=== PATIENT | female | born 1950 | race Asian ===

== ENCOUNTER 2023-11-13 09:35 | Outpatient (AMB) | payer OTHER, SELFPAY ==
--- NOTE | 2023-11-13 09:37 | A.OFFVIS_ITS ---
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 Patient reports that her knee pain has been going on for about 3 years. She has had cortisone injections in the past which gave her temporary relief. The patient also reports progressively worsening low back pain which radiates down her left leg. She has been seen by an cable engineer outside plant which gave her minimal relief. The patient also reports intermittent weakness in her left leg. Her back pain has gotten worse over the last year in spite of continued non operative treatments. She has tried Tylenol and anti-inflammatory medicines which gave her minimal relief. Accompanied by: Daughter Allergies advil gel Allergy (Severe, Uncoded 11/13/23 10:00) Hives Medication List - Last Reconciled 11/13/23 by Yusef Arellano MD alendronate 35 mg PO QWEEK calcium carbonate mg PO DAILY capsaicin 0.025% patches topical carvedilol 3.125 mg PO BID cholecalciferol (vitamin D3) (Vitamin D3) 25 mcg PO DAILY fluticasone propionate 50 mcg/actuation 1 spray intranasal DAILY lisinopril 10 mg PO DAILY pantoprazole 40 mg PO DAILY simvastatin 20 mg PO BEDTIME [facility] Social History Patient Tobacco Use Status: Former Tobacco user Quit Date: pt quit summer Years Smoked: 30 Physical Exam Vital Signs: BMI result Body Mass Index 23.6 Const Other: Well-nourished well-developed very friendly female awake alert and oriented x3 in no acute distress Back/Spine/Pelvis Other: Low back examination shows left-sided paraspinal muscle tenderness, pain with range of motion, positive straight leg raise test on left at 70 degrees, 4/5 strength with testing of her left hip flexors and knee extensors when compared to 5/5 strength on her right side Extrem Other: Bilateral knee examination shows minimal effusions, mild crepitus with range of motion, mild discomfort with range of motion, no instability Results Reviewed Results Reviewed: X-rays of the patient's bilateral knee show mild diffuse joint space narrowing, no acute bony abnormalities Assessment & Plan Assessment & Plan (1) Low back pain radiating to left leg: Code(s): M54.50 - Low back pain, unspecified; M79.605 - Pain in left leg (2) Right knee pain: Code(s): M25.561 - Pain in right knee (3) Left knee pain: Code(s): M25.562 - Pain in left knee Plan Ms. Ramos presents with progressively worsening low back pain which radiates down her left leg as well as associated left leg weakness possibly due to lumbar stenosis or a disc herniation. Thus, I will send the patient for an MRI of her lumbar spine for further evaluation. I will see her back once the MRI is completed to discuss the findings and treatment options. The patient also has intermittent discomfort in both of her knees due to early degenerative joint disease. At this point her knee discomfort is tolerable to her. We will hold off on an cortisone injection. Feel free to call me at any time should questions regarding her orthopedic management arise. Thank you very much for asking me to see this very friendly patient. I spent 22 minutes in reviewing the patient's records and imaging studies, seeing the patient and documenting in the medical record. Orders: Orders XR knee LT 3V Today M25.562 - Pain in left knee XR knee RT 3V Today M25.561 - Pain in right knee MR lumbar spine wo con Today M54.50 - Low back pain, unspecified, M79.605 - Pain in left leg Coding Level of Care Code Est Pt Level 2 (05895) Diagnoses Low back pain radiating to left leg M54.50; M79.605 Right knee pain M25.561 Left knee pain M25.562
[2023-11-13 09:55] VITALS: BMI 23.6
== END 2023-11-13 10:21 | disposition home or self-care (01) ==
PROVIDERS: PCP Physician Assistant; Visit Provider Orthopaedic Surgery
DX: M17.0 Bilateral primary osteoarthritis of knee (principal); M54.50 Low back pain, unspecified; M79.605 Pain in left leg
CPT/HCPCS: 99213

== ENCOUNTER 2023-11-13 10:35 | Outpatient (REF) | payer OTHER, SELFPAY ==
--- NOTE | ~2023-11-13 | XR_ITS ---
EXAMINATION: XR KNEE, RIGHT CLINICAL INFORMATION: Pain. COMPARISON: None available. TECHNIQUE: AP, lateral and sunrise views of the right knee are submitted. FINDINGS: Bony alignment and mineralization are normal. The lateral, medial and patellofemoral joint space compartments are well-maintained. There is mild peripheral osteophyte formation of the medial and patellofemoral compartments. No fracture, dislocation or significant joint effusion is seen. There is no foreign body. XR/XR knee RT 3V IMPRESSION: 1. There is mild osteoarthritic change of the medial and patellofemoral joint space compartments of the right knee. 2. There is no right knee fracture, dislocation or joint effusion. EXAMINATION: XR KNEE, LEFT CLINICAL INFORMATION: Pain. COMPARISON: None available. TECHNIQUE: AP, lateral and sunrise views of the left knee are submitted. FINDINGS: Bony alignment and mineralization are normal. The lateral, medial and patellofemoral joint space compartments are well-maintained. There is mild peripheral osteophyte formation of the medial and patellofemoral compartments. There is no fracture, dislocation or joint effusion. No foreign body is seen. IMPRESSION: 1. There is mild osteoarthritic change of the medial and patellofemoral joint space compartments of the left knee. 2. No left knee fracture, dislocation or significant joint effusion is seen.
--- NOTE | ~2023-11-13 | XR_ITS ---
EXAMINATION: XR KNEE, RIGHT CLINICAL INFORMATION: Pain. COMPARISON: None available. TECHNIQUE: AP, lateral and sunrise views of the right knee are submitted. FINDINGS: Bony alignment and mineralization are normal. The lateral, medial and patellofemoral joint space compartments are well-maintained. There is mild peripheral osteophyte formation of the medial and patellofemoral compartments. No fracture, dislocation or significant joint effusion is seen. There is no foreign body. XR/XR knee LT 3V IMPRESSION: 1. There is mild osteoarthritic change of the medial and patellofemoral joint space compartments of the right knee. 2. There is no right knee fracture, dislocation or joint effusion. EXAMINATION: XR KNEE, LEFT CLINICAL INFORMATION: Pain. COMPARISON: None available. TECHNIQUE: AP, lateral and sunrise views of the left knee are submitted. FINDINGS: Bony alignment and mineralization are normal. The lateral, medial and patellofemoral joint space compartments are well-maintained. There is mild peripheral osteophyte formation of the medial and patellofemoral compartments. There is no fracture, dislocation or joint effusion. No foreign body is seen. IMPRESSION: 1. There is mild osteoarthritic change of the medial and patellofemoral joint space compartments of the left knee. 2. No left knee fracture, dislocation or significant joint effusion is seen.
== END 2023-11-13 10:36 | disposition home or self-care (01) ==
LOC: HO.HOSX 10:35
PROVIDERS: Visit Provider Orthopaedic Surgery
DX: M25.562 Pain in left knee (principal); M25.561 Pain in right knee; M54.50 Low back pain, unspecified; M79.605 Pain in left leg; Z79.899 Other long term (current) drug therapy
CPT/HCPCS: 73562; 99212

== ENCOUNTER 2023-12-05 10:11 | Outpatient (AMB) | payer OTHER, SELFPAY ==
--- NOTE | 2023-12-05 10:18 | MHC.OFFVIS ---
Intake Intake Visit Reasons: ov- Lumbar spine MRI review Intake Note: Tono Almendarez is a 73 year old female who presents for and MRI review of her lumbar spine. The patient describes her low back pain as sharp in nature. The patient states that the pain does radiate down her left leg. She also states that she has ?numbness? in her left leg. She has done physical therapy exercises which aggravated her pain. She has had cortisone injections given into both of her knees. She has not had a cortisone injection given into her low back. Allergies guaifenesin Allergy (Verified 12/05/23 10:22) Rash advil gel Allergy (Severe, Uncoded 11/13/23 10:00) Hives naproxen sodium Allergy (Uncoded 12/05/23 10:22) Unknown Medication List - Last Reconciled 12/05/23 by Yusef Arellano MD alendronate 35 mg PO QWEEK calcium carbonate mg PO DAILY capsaicin 0.025% patches topical carvedilol 3.125 mg PO BID cholecalciferol (vitamin D3) (Vitamin D3) 25 mcg PO DAILY fluticasone propionate 50 mcg/actuation 1 spray intranasal DAILY lisinopril 10 mg PO DAILY pantoprazole 40 mg PO DAILY simvastatin 20 mg PO BEDTIME PFSH Social History Patient Tobacco Use Status: Former Tobacco user Quit Date: pt quit summer Years Smoked: 30 Physical Exam Const Other: Well-nourished well-developed very friendly female awake alert and oriented x3 in no acute distress Back/Spine/Pelvis Other: Low back examination shows left-sided paraspinal muscle tenderness, pain with motion, positive straight leg raise test on the left at 70 degrees Results Reviewed Results Reviewed: MRI of the patient's lumbar spine shows moderate foraminal narrowing at level L5-S1, no acute bony abnormalities Assessment & Plan Assessment & Plan (1) Low back pain radiating to left leg: Code(s): M54.50 - Low back pain, unspecified; M79.605 - Pain in left leg Plan Ms. Ramos presents with low back pain which radiates down her left leg as well as associated left leg numbness due to foraminal stenosis. Thus, I will refer the patient to the neurosurgery group. [facility] for further evaluation and recommendations regarding her treatment options. The patient will follow up with me on an as-needed basis. Feel free to call me at any time should questions regarding her orthopedic management arise. I spent 22 minutes in reviewing the patient's records and imaging studies, seeing the patient and documenting in the medical record. Orders: Referrals Neurosurgery Referral M54.50 - Low back pain, unspecified, M79.605 - Pain in left leg Coding Level of Care Code Est Pt Level 2 (03266) Diagnoses Low back pain radiating to left leg M54.50; M79.605
== END 2023-12-05 10:43 | disposition home or self-care (01) ==
PROVIDERS: PCP Physician Assistant; Visit Provider Orthopaedic Surgery
DX: M54.50 Low back pain, unspecified (principal); M79.605 Pain in left leg
CPT/HCPCS: 99213

== ENCOUNTER → 2023-12-05 10:11 | Outpatient (BNVA) | payer OTHER, SELFPAY | PROVIDERS: PCP Physician Assistant; Visit Provider Orthopaedic Surgery | DX: M54.50 Low back pain, unspecified (principal); M79.605 Pain in left leg; M48.00 Spinal stenosis, site unspecified | CPT/HCPCS: 99212 ==

== ENCOUNTER 2023-12-26 09:19 | Outpatient (AMB) | payer OTHER, SELFPAY ==
--- NOTE | 2023-12-26 09:45 | MHC.OFFVIS ---
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 Arellano, Thank you for referring To to our office today. She is a pleasant 73-year-old female who comes in today with a chief complaint of low back pain with radiation down her left lower leg. When describing the distribution of the radiation she runs her hand from her left posterior buttocks down the posterior aspect of her thigh over the gastrocnemius and down to the bottom of her foot. She reports that this radicular pain is also accompanied by numbness in her left heel and at the bottom of her left foot. She reports no inciting incident, but states that her pain has been ongoing for the past 2 years. She reports that in the last 6-7 months her pain is significantly intensified in his beginning to affect her activities of daily living. She further states that she has attempted physical therapy, acupuncture, and at-home stretching/exercising with only minimal relief of symptoms. She is also exhausted [id number] remedies to try and treat this issue. PMH: Osteopenia, hypertension, seasonal allergies, GERD, hyperlipidemia. No surgical history. Social hx: The patient does not smoke, reports no substance use. Medications: Simvastatin, pantoprazole, lisinopril, fluticasone, vitamin D3, carvedilol, capsaicin, calcium carbonate, alendronate. Allergies: Guaifenesin, Advil, naproxen. Physical exam: The patient has 5/5 strength in her upper and lower extremities. She reports some numbness to palpation of the bottom of her L foot starting at the heel. The rest of her sensation is intact. Her reflexes are 2+ intact. She is able to ambulate well and rises from a seated position without difficulty. (-) Montalvo's, (-) clonus, (-) Babinski's, (-) straight leg raise bilaterally. Imaging review: MRI of the lumbar spine completed at [facility] shows mild posterior disc bulging at L3-4 and L4-5. There is a moderate-severe posterior disc herniation at L5-S1 causing severe left-sided foraminal stenosis and moderate right-sided foraminal stenosis. There is also moderate central canal stenosis noted at this level. Impression: Toes a pleasant 73-year-old female who comes in today with a chief complaint of 2 years of low back pain with radiation into her left lower extremity. She reports the symptoms have been ongoing and worsening in the last 6-7 months. She reports an associated numbness at the bottom of her left foot beginning in her heel. Her symptoms are in a classic left-sided S1 nerve root distribution. She has a large disc herniation impinging this area. We discussed the possibility of a microdiskectomy as an option to resolve her radicular pain. She reports she would like to try more conservative measures at this time. I suggested she see our colleagues in pain management for evaluation of steroid injections at L5-S1. She is agreeable to this. I will complete a referral for pain management, and encouraged to return to our office in the future if she would like to seek a surgical solution for her problem. Thank you for allowing us to care for your patient. The total time spent with this visit with this patient was 45 minutes reviewing history, physical exam, MRI imaging review, and implementation of treatment plan or further diagnostic testing Travis Ledezma MD,PhD [facility] Coding Level of Care Code New Pt Level 4 (25423) Diagnoses Low back pain radiating to left leg M54.50; M79.605
== END 2023-12-26 10:13 | disposition home or self-care (01) ==
PROVIDERS: PCP Physician Assistant; Referring Provider Orthopaedic Surgery; Visit Provider Physician Assistant
DX: M54.50 Low back pain, unspecified (principal); M79.605 Pain in left leg
CPT/HCPCS: 99204

== ENCOUNTER → 2023-12-26 09:19 | Outpatient (BNVA) | payer OTHER, SELFPAY | PROVIDERS: PCP Physician Assistant; Visit Provider Physician Assistant | DX: M54.50 Low back pain, unspecified (principal); M79.605 Pain in left leg | CPT/HCPCS: 99202 ==

== ENCOUNTER 2024-01-02 08:27 | Outpatient (AMB) | payer OTHER, SELFPAY ==
[2024-01-02 08:31] VITALS: BP 130/82; PULSE 77; RESP 12; O2SAT 97; BMI 23.6
--- NOTE | 2024-01-02 08:31 | MHC.OFFVIS ---
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 Passenger Vessel Chef Name: Shefali, prefers dtr Allergies guaifenesin Allergy (Verified 01/02/24 08:33) Rash advil gel Allergy (Severe, Uncoded 01/02/24 08:33) Hives naproxen sodium Allergy (Uncoded 01/02/24 08:33) Unknown Medication List - Last Reconciled 01/02/24 by Precious Guevara LPN alendronate 35 mg PO QWEEK calcium carbonate mg PO DAILY capsaicin 0.025% patches topical carvedilol 3.125 mg PO BID cholecalciferol (vitamin D3) (Vitamin D3) 25 mcg PO DAILY fluticasone propionate 50 mcg/actuation 1 spray intranasal DAILY lisinopril 10 mg PO DAILY pantoprazole 40 mg PO DAILY simvastatin 20 mg PO BEDTIME HPI Low back pain, pain in left leg HPI Details 73-year-old female who presents today to the office for an evaluation of low back pain and left leg pain. The patient reports low back pain that radiates down to the left lower leg. She described her pain as radiating from her left posterior buttocks down to the posterior aspect of her thigh and down to her left foot. She reports numbness in her left heel and at the bottom of her left foot. The pain has been ongoing for about two years. She states that her pain depends on the day. It is affecting her daily activities. She noticed gait imbalance issues when standing for a prolonged period.? She has had cortisone injections given to both of her knees. She has not had a cortisone injection given into her low back. She has tried physical therapy, acupuncture, and at-home stretching/exercising with only minimal relief of symptoms. She also exhausted [id number] remedies.? [facility] Social History Patient Tobacco Use Status: Former Tobacco user Quit Date: pt quit summer Years Smoked: 30 Review of Systems Const All systems reviewed & are unremarkable except as noted in HPI and below Physical Exam Vital Signs: Last Vital Signs Pulse 77 01/02/24 08:31 Resp 12 01/02/24 08:31 BP 130/82 01/02/24 08:31 Pulse Ox 97 01/02/24 08:31 Oxygen Delivery Method Room Air 01/02/24 08:31 BMI result Body Mass Index 23.6 General: Appears afebrile. Alert and oriented. Mood and affect appropriate. Follows and participates in conversation appropriately. Respiratory effort is unlabored. Able to transition from sit to stand unassisted. Ambulates with bilaterally normal heel strike and toe off. Straight leg raise reproduces some tightness of the back of her left leg. Results Reviewed Results Reviewed: 12/01/23: MRI scan LUMBAR SPINE. 11/13/2023: XR KNEE, RIGHT FINDINGS: Bony alignment and mineralization are normal. The lateral, medial and patellofemoral joint space compartments are well-maintained. There is mild peripheral osteophyte formation of the medial and patellofemoral compartments. No fracture, dislocation or significant joint effusion is seen. There is no foreign body. IMPRESSION: 1. There is mild osteoarthritic change of the medial and patellofemoral joint space compartments of the right knee. 2. There is no right knee fracture, dislocation or joint effusion. 11/13/23: XR KNEE, LEFT FINDINGS: Bony alignment and mineralization are normal. The lateral, medial and patellofemoral joint space compartments are well-maintained. There is mild peripheral osteophyte formation of the medial and patellofemoral compartments. There is no fracture, dislocation or joint effusion. No foreign body is seen. IMPRESSION: 1. There is mild osteoarthritic change of the medial and patellofemoral joint space compartments of the left knee. 2. No left knee fracture, dislocation or significant joint effusion is seen. Assessment & Plan Assessment & Plan (1) Low back pain radiating to left leg: Code(s): M54.50 - Low back pain, unspecified; M79.605 - Pain in left leg Plan Will schedule her for a left diagnostic L5 TFESI. Discussed the risks and benefits of the procedure with the patient in detail. All questions were answered. The patient is on board with the plan. Justification for interventional therapy: ? Patient with average pain > 6/10 ? Patient has exhausted conservative therapy ? Patient unable to tolerate physical therapy due to pain. Scribed for Dr. Gomez by Wild Blandon, medical director occupational health, on 01/02/2024. I, Dr. Gomez, have personally reviewed and agree with the information entered by the scribe. Coding Level of Care Code New Pt Level 4 (99430) Diagnoses Low back pain radiating to left leg M54.50; M79.605
== END 2024-01-02 08:57 | disposition home or self-care (01) ==
PROVIDERS: PCP Physician Assistant; Referring Provider Physician Assistant; Visit Provider Internal Medicine
DX: M54.50 Low back pain, unspecified (principal); M79.605 Pain in left leg
CPT/HCPCS: 99204

== ENCOUNTER → 2024-01-02 08:27 | Outpatient (BNVA) | payer OTHER, SELFPAY | PROVIDERS: PCP Physician Assistant; Referring Provider Physician Assistant; Visit Provider Internal Medicine | DX: M54.50 Low back pain, unspecified (principal); M79.605 Pain in left leg | CPT/HCPCS: 99202 ==

== ENCOUNTER 2024-03-20 06:55 | Outpatient (REF) | payer OTHER, SELFPAY ==
--- NOTE | ~2024-03-20 | FL_ITS ---
EXAMINATION: XR FLUOROSCOPY WITH IMAGES CLINICAL INFORMATION: Low back pain. COMPARISON: None available. TECHNIQUE: Fluoroscopy Supervised By: Dr. Ehsan Gomez. Fluoroscopy Time: 0.1 minute. Cumulative Dose: 2.48 mGy. DAP: 0.0111 Gycm2. Images: 4. FINDINGS: Intraoperative fluoroscopy and spot films were performed during a procedure in the OR. Marion are seen overlying the lower lumbar spine with contrast injected around their tips. Difficult to state the level in coning the images. Please see Dr. Ehsan Gomez's report for complete details. FL/FL guidance in treatment room IMPRESSION: Intraoperative fluoroscopy and spot films were obtained. Please see Dr. Ehsan Gomez's report for complete details.
== END 2024-03-20 06:56 | disposition home or self-care (01) ==
LOC: CF 06:55
PROVIDERS: PCP Physician Assistant; Visit Provider Internal Medicine
DX: M54.16 Radiculopathy, lumbar region (principal); M79.605 Pain in left leg; M54.50 Low back pain, unspecified
CPT/HCPCS: 64483; J1100; Q9967

== ENCOUNTER 2024-03-20 08:51 | Outpatient (AMB) | payer OTHER, SELFPAY ==
--- NOTE | 2024-03-20 08:53 | A.OFFVIS_ITS ---
Vital Signs 03/20/24 09:23 03/20/24 09:26 Height 5 ft 1 in Weight 125 lb BMI 23.6 BP 130/68 130/80 Blood Pressure Location Lt brachial Lt brachial Position Sitting Sitting Respiration 16 Pulse 58 Pulse Source Pulse Oximeter Pulse Oximetry (%) 97 Oxygen Delivery Method Room Air Comment Pre-Op Intake Visit Reasons: Left L5 TFESI Allergies guaifenesin Allergy (Verified 01/02/24 08:33) Rash advil gel Allergy (Severe, Uncoded 01/02/24 08:33) Hives naproxen sodium Allergy (Uncoded 01/02/24 08:33) Unknown HPI HPI Left L5 TFESI: Details: Patient presents for scheduled procedure. Denies any recent cough, cold, infection, fever or other significant changes in medical history since last office visit. [facility] Social History Patient Tobacco Use Status: Former Tobacco user Quit Date: pt quit summer Years Smoked: 30 Physical Exam Vital Signs: Last Vital Signs Pulse 58 03/20/24 09:23 Resp 16 03/20/24 09:23 BP 130/80 03/20/24 09:26 Pulse Ox 97 03/20/24 09:23 Oxygen Delivery Method Room Air 03/20/24 09:23 BMI result Body Mass Index 23.6 Office Procedures Details: Transforaminal epidural steroid injection, Left L5 After obtaining written consent, pre-procedure blood pressure and heart rate were stable and recorded in the nursing record. The patient was placed in the prone position on the fluoroscopy table. The lumbosacral area was prepped with chloraprep, allowed to dry and draped in sterile fashion. Using fluoroscopy, the skin overlying our target was anesthetized with 0.5% lidocaine. A 22 gauge 3.5 inch spinal needle was advanced to the safe triangle in the upper pole of the left L5 foramen. No paresthesias were elicited with needle placement and aspiration was negative for blood and CSF. Correct needle position was confirmed with approximately 1 ml contrast dye (Omnipaque 180 mg/ml) injected under real-time fluoroscopy. No evidence of vascular or intrathecal uptake was seen and there was both epidural and peripheral spread of the contrast agent. 10 mg dexamethasone plus 1 ml containing 0.5% lidocaine was slowly injected. The needle was flushed and removed. The skin was cleansed and a sterile bandages were applied. The patient tolerated the procedure well and no complications were encountered. Following the procedure the patient's vital signs were stable. The patient was discharged home in good condition with post-procedural instructions. Time Out: Immediately prior to the procedure, the following was verbally confirmed that there is a signed consent form and that the correct patient, planned procedure, site and side are consistent with documentation and that necessary equipment and/or blood products are available prior to the start of the case. Complications: none EBL: <5 cc 77790 - Lumbar/Sacral Procedure code (CPT) selection complete Assessment & Plan Assessment & Plan (1) Low back pain radiating to left leg: Code(s): M54.50 - Low back pain, unspecified; M79.605 - Pain in left leg Category: Medical Plan Patient is status post left L5 TFESI. Patient tolerated procedure well and was discharged home in stable condition with discharge instructions. All questions were answered. We will follow-up via telephone or in clinic to assess response to therapy. A follow-up appointment was made during today's visit. Orders: Orders FL guidance in treatment room Today M54.50 - Low back pain, unspecified, M79.605 - Pain in left leg Coding Level of Care Code Procedure Only Diagnoses Low back pain radiating to left leg M54.50; M79.605 CPT Codes Transforaminal Epidural Steroid Inj - TESI 3: 87632 - Lumbar/Sacral ([id number])
[2024-03-20 09:23] VITALS: BP 130/68; PULSE 58; RESP 16; O2SAT 97; BMI 23.6
[2024-03-20 09:26] VITALS: BP 130/80
== END 2024-03-20 09:27 | disposition home or self-care (01) ==
LOC: HO.PMCPRC 08:51
PROVIDERS: PCP Physician Assistant; Visit Provider Internal Medicine
DX: M54.16 Radiculopathy, lumbar region (principal)
CPT/HCPCS: 64483

== ENCOUNTER 2024-04-23 10:27 | Outpatient (AMB) | payer OTHER, SELFPAY ==
--- NOTE | 2024-04-23 10:35 | A.OFFVIS_ITS ---
Vital Signs 04/23/24 10:38 Height 5 ft 1 in Weight 128 lb BMI 24.2 BP 120/66 Blood Pressure Location Lt brachial Position Sitting Respiration 14 Pulse 64 Pulse Source Pulse Oximeter Pulse Oximetry (%) 97 Oxygen Delivery Method Room Air Intake Visit Reasons: s/p Left L5 TFESI Allergies guaifenesin Allergy (Verified 04/23/24 10:39) Rash advil gel Allergy (Severe, Uncoded 04/23/24 10:39) Hives naproxen sodium Allergy (Uncoded 04/23/24 10:39) Unknown Medication List - Last Reconciled 04/23/24 by Precious Guevara LPN alendronate 35 mg PO QWEEK calcium carbonate mg PO DAILY capsaicin 0.025% patches topical carvedilol 3.125 mg PO BID cholecalciferol (vitamin D3) (Vitamin D3) 25 mcg PO DAILY fluticasone propionate 50 mcg/actuation 1 spray intranasal DAILY lisinopril 10 mg PO DAILY pantoprazole 40 mg PO DAILY simvastatin 20 mg PO BEDTIME HPI HPI s/p Left L5 TFESI: Details: 73-year-old female who presents to the office for status post left L5 transforaminal epidural steroid injection, left L5 The patient reports 100% relief following the procedure. The patient has completed the resolution of the pain post-injection. She still has persistent numbness in her left foot that is not bothersome. The numbness in the foot started way before the injection. She has been doing more exercises at home. Past Procedure: 04/07/24: Left L5 transforaminal epidural steroid injection: 100% relief [facility] Social History Patient Tobacco Use Status: Former Tobacco user Years Smoked: 30 Review of Systems Const All systems reviewed & are unremarkable except as noted in HPI and below Physical Exam Vital Signs: Last Vital Signs Pulse 64 04/23/24 10:38 Resp 14 04/23/24 10:38 BP 120/66 04/23/24 10:38 Pulse Ox 97 04/23/24 10:38 Oxygen Delivery Method Room Air 04/23/24 10:38 BMI result Body Mass Index 24.2 General: Appears afebrile. Alert and oriented. Mood and affect appropriate. Follows and participates in conversation appropriately. Respiratory effort is unlabored. Able to transition from sit to stand unassisted. Results Reviewed Results Reviewed: No imaging is available for review Assessment & Plan Assessment & Plan (1) Low back pain radiating to left leg: Code(s): M54.50 - Low back pain, unspecified; M79.605 - Pain in left leg Category: Medical Plan She had complete resolution of her pain symptoms post-last injection. The patient will follow up as needed when her pain returns in the future. I advised her to reach out to us if her numbness worsened or became bothersome.? Scribed for Dr. Gomez by Paul Mccullough, medical records secretary, on 04/23/2024. I, Dr. Gomez, have personally reviewed and agree with the information entered by the scribe. Coding Level of Care Code Est Pt Level 3 (73559) Diagnoses Low back pain radiating to left leg M54.50; M79.605
[2024-04-23 10:38] VITALS: BP 120/66; PULSE 64; RESP 14; O2SAT 97; BMI 24.2
== END 2024-04-23 11:05 | disposition home or self-care (01) ==
PROVIDERS: PCP Physician Assistant; Visit Provider Internal Medicine
DX: M54.50 Low back pain, unspecified (principal); M79.605 Pain in left leg
CPT/HCPCS: 99213

== ENCOUNTER → 2024-04-23 10:27 | Outpatient (BNVA) | payer OTHER, SELFPAY | PROVIDERS: PCP Physician Assistant; Visit Provider Internal Medicine | DX: M54.50 Low back pain, unspecified (principal); M79.605 Pain in left leg | CPT/HCPCS: 99212 ==

== ENCOUNTER 2024-10-15 10:16 | Outpatient (AMB) | payer OTHER, SELFPAY ==
[2024-10-15 10:20] VITALS: BP 132/60; PULSE 65; RESP 14; O2SAT 96; BMI 24.7
--- NOTE | 2024-10-15 10:20 | MHC.OFFVIS ---
Vital Signs 10/15/24 10:20 Height 5 ft 1 in Weight 131 lb BMI 24.7 BP 132/60 Blood Pressure Location Lt brachial Position Sitting Respiration 14 Pulse 65 Pulse Source Pulse Oximeter Pulse Oximetry (%) 96 Oxygen Delivery Method Room Air Intake Visit Reasons: FU leg pain came back Allergies guaifenesin Allergy (Verified 10/15/24 10:21) Rash advil gel Allergy (Severe, Uncoded 10/15/24 10:21) Hives naproxen sodium Allergy (Uncoded 10/15/24 10:21) Unknown Medication List - Last Reconciled 10/15/24 by Precious Guevara LPN alendronate 35 mg PO QWEEK calcium carbonate mg PO DAILY capsaicin 0.025% patches topical carvedilol 3.125 mg PO BID cholecalciferol (vitamin D3) (Vitamin D3) 25 mcg PO DAILY fluticasone propionate 50 mcg/actuation 1 spray intranasal DAILY lisinopril 10 mg PO DAILY pantoprazole 40 mg PO DAILY simvastatin 20 mg PO BEDTIME HPI HPI FU leg pain came back: Details: 74-year-old female who presents to the office today for evaluation of leg pain. She was referred to us by spine surgery for consideration of epidural injections. While in the office today, patient reports experiencing pain in her left lower back and leg for the last few 5-6 months, but in the recent months, it has been constant and progressively getting worse. She states the therapeutic injection only lasted about 2 months and then her symptoms started to get worse again. She reports worsening numbness in her left foot and is concerned about it. She states she wakes up every morning with the pain. She tried massage and some exercise with mild benefit. She declined shot at this time. Past Procedure: 04/07/24: Left L5 transforaminal epidural steroid injection: 100% relief for 2 months with progressive return of symptoms [facility] Social History Patient Tobacco Use Status: Former Tobacco user Years Smoked: 30 Review of Systems Const All systems reviewed & are unremarkable except as noted in HPI and below Physical Exam Vital Signs: Last Vital Signs Pulse 65 10/15/24 10:20 Resp 14 10/15/24 10:20 BP 132/60 10/15/24 10:20 Pulse Ox 96 10/15/24 10:20 Oxygen Delivery Method Room Air 10/15/24 10:20 BMI result Body Mass Index 24.7 General: Appears afebrile. Alert and oriented. Mood and affect appropriate. Follows and participates in conversation appropriately. Respiratory effort is unlabored. Able to transition from sit to stand unassisted. Ambulates with bilaterally normal heel strike and toe off. Results Reviewed Results Reviewed: No imaging is available for review. Assessment & Plan Assessment & Plan (1) Low back pain radiating to left leg: Code(s): M54.50 - Low back pain, unspecified; M79.605 - Pain in left leg Category: Medical Plan This is a 74-year-old female who was referred to us by spine surgery for consideration of epidural injections for her left lumbar radiculopathy that provided her temporary relief. Unfortunately, the therapeutic injection only lasted about two months and then her symptoms started to get worse again. In the recent months, it has been progressively getting worse. She is also concerned about the worsening numbness in her left foot. I encouraged her to stop at the spine surgery desk and make a follow-up appointment for a microdiscectomy, as was discussed before. She may even need new imaging given her worsening symptoms if felt clinically necessary by our spine surgery colleagues. Patient expressed understanding Scribed for Dr. Gomez by Lawson Pichardo, medical doctor, on 10/15/2024.? I, Dr. Gomez, have personally reviewed and agree with the information entered by the scribe. Coding Level of Care Code Est Pt Level 3 (30967) Diagnoses Low back pain radiating to left leg M54.50; M79.605
== END 2024-10-15 10:35 | disposition home or self-care (01) ==
PROVIDERS: PCP Physician Assistant; Visit Provider Internal Medicine
DX: M54.50 Low back pain, unspecified (principal); M79.605 Pain in left leg
CPT/HCPCS: 99213

== ENCOUNTER → 2024-10-15 10:16 | Outpatient (BNVA) | payer OTHER, SELFPAY | PROVIDERS: PCP Physician Assistant; Visit Provider Internal Medicine | DX: M54.50 Low back pain, unspecified (principal); M79.605 Pain in left leg | CPT/HCPCS: 99212 ==

== ENCOUNTER 2024-10-27 10:57 | Outpatient (AMB) | payer OTHER, SELFPAY ==
--- NOTE | 2024-10-27 11:08 | A.SPINEOV_ITS ---
Intake Visit Reasons: left lower back pain Intake Note: Ms. Ramos is here today c/o left sided low back pain. Senior Software Quality Engineer Required: Yes Senior Software Quality Engineer Services: Senior Software Quality Engineer Present Allergies guaifenesin Allergy (Verified 10/15/24 10:21) Rash advil gel Allergy (Severe, Uncoded 10/15/24 10:21) Hives naproxen sodium Allergy (Uncoded 10/15/24 10:21) Unknown Assessment & Plan Assessment & Plan (1) Lumbar radiculopathy: Code(s): M54.16 - Radiculopathy, lumbar region Category: Medical Plan HPI: Tono Almendarez comes in today for a follow-up appointment after being referred to our colleagues in pain management for Left L5 transforaminal epidural steroid injection in March of this year. To recap she was initially presenting with an L5 / S1 radiculopathy which was successfully treated via TFESI. She experienced 100% pain relief for 2 months, but unfortunately this returned shortly thereafter. She was previously seeking to pursue more conservative measures than surgery. Today. she reports that the radicular pain we previously discussed has returned. She has shooting pains again down the posterior aspect of her left leg terminating at the foot. In addition to this, she states that she has started to get some shooting pains into her right posterior buttocks. Medication changes / Surgeries: Patient reports no changes since previous office visit. Exam: The patient has 5/5 strength in her bilateral lower extremities. She reports sensational changes via numbness on the lateral and inferior aspect of her left foot. She ambulates well without an antalgic gait. Reflexes are 2+ intact in her lower extremities. Imaging: MRI of the lumbar spine completed 1 year ago at [facility] was again reviewed and shows a disc herniation at L5-S1 compressing on the left-sided e xiting nerve root. Plan: The patient has a known disc herniation at L5-S1, with progression of symptoms to include numbness in her left foot and right-sided radiculopathy. For these reasons I would like to order a repeat lumbar MRI for the patient in order to evaluate the progression of her disc herniation. We will again review his imaging in clinic once it is completed and discuss potential surgical options. Travis Ledezma MD,PhD [facility] Coding Level of Care Code Est Pt Level 3 (93782) Diagnoses Lumbar radiculopathy M54.16
== END 2024-10-27 11:49 | disposition home or self-care (01) ==
PROVIDERS: PCP Physician Assistant; Referring Provider Internal Medicine; Visit Provider Physician Assistant
DX: M54.16 Radiculopathy, lumbar region (principal)
CPT/HCPCS: 99213

== ENCOUNTER → 2024-10-27 10:57 | Outpatient (BNVA) | payer OTHER, SELFPAY | PROVIDERS: PCP Physician Assistant; Referring Provider Internal Medicine; Visit Provider Physician Assistant | DX: M54.16 Radiculopathy, lumbar region (principal) | CPT/HCPCS: 99212 ==